=== PATIENT | male | born 1990 | race Caucasian/White ===

== ENCOUNTER 2018-10-28 20:49 | Inpatient (IN) | payer OTHER ==
[~2018-10-28] VITALS: Ht 177.8 cm; Wt 113.0 kg
[2018-10-28 20:56] VITALS: Ht 177.8 cm; Wt 113.0 kg
--- NOTE | 2018-10-28 21:00 | NUR ---
PT BIBA FOR COMPLAINT O
--- NOTE | 2018-10-28 21:00 | NUR ---
DR. LEE AT BEDSIDE FOR MSE.
--- NOTE | 2018-10-28 21:02 | NUR ---
PT BIBA FOR COMPLAINT OF BEING FOUND UNRESPONSIVE BY FAMILY AND IN BATHUB AT HOME. PER TELETYPESETTER OPERATOR, PT HAS A HX OF SEIZURES AND HTN, WAS FOUND WITH BLOODY NOSE TO RIGHT NARE AND LAST SEIZURE WAS 5 MONTHS AGO. BS 137 PER TELETYPESETTER OPERATOR AND PT GCS 14 EN ROUTE BUT "RASHARD CONFUSED". IV STARTED TO LFA 18G. PT AOX4 ABLE TO RESPOND TO COMMANDS AND MAKE NEEDS KNOWN, SPEECH CLEAR, REPORTS FUENTES/DIZZINESS. LUNG SOUNDS CLEAR BILATERALLY. SEIZURE PRECAUTIONS IN PLACE.
[2018-10-28 21:31] LABS: UA SPECIFIC GRAVITY 1.025 (1.005-1.035); microscopic required? YES; urine erythrocyte 2+ (NEGATIVE)
[2018-10-28 21:39] LABS: AMPHETAMINE QUAL UR NONE DETECTED (See below)
--- NOTE | 2018-10-28 21:55 | NUR ---
DR. LEE AT BEDSIDE TO DISUCSS WITH PT POC.
--- NOTE | 2018-10-28 22:01 | NUR ---
PER DR. LEE, NO S/S OF ANY TRAUMA TO PT'S HEAD REGION, "NO NEED FOR CT OF HEAD AT THIS TIME". PER DR. LEE, OK FOR FAMILY TO BRING IN HOME MEDICATION OF PATIENT DUE TO OUR PHARMACY NOT HAVING THE PRESCRIBED MEDICATIONS AND OK TO TAKE THE HOME SCHEDULED DOSE.
[2018-10-28 22:07] LABS: BASOPHIL % 0.3 % (0-2); PLATELET COUNT 296 x10^3mcL (130-400); RED CELL DISTRIBUTION WIDTH 12.7 % (11.5-14.5)
[2018-10-28 22:14] LABS: CALCIUM 8.6 mg/dL (8.5-10.1); CARBON DIOXIDE 16.5 mmol/L (21-32); CHLORIDE SERUM 100 mmol/L (98-107); CREATININE SERUM 1.3 mg/dL (0.7-1.3); GFR1 > 60 mL/min; GLUCOSE SERUM 145 mg/dL (74-106); POTASSIUM SERUM 3.6 mmol/L (3.5-5.1); SODIUM SERUM 135 mmol/L (136-145)
[2018-10-28 22:19] LABS: ALBUMIN 4.1 g/dL (3.4-5.0); ALKALINE PHOSPHATASE 102 U/L (46-116); ALT/SGPT 56 U/L (16-63); AST/SGOT 23 U/L (15-37); BILIRUBIN TOTAL 0.27 mg/dL (0.20-1.00); TOTAL PROTEIN, SERUM 8.2 g/dL (6.4-8.2)
--- NOTE | 2018-10-28 22:45 | NUR ---
DR. LEE AT BEDSIDE TO DISCUSS WITH PT POC. PER DR. ROSA SHAH FOR PT TO TAKE HOME MEDS.
--- NOTE | 2018-10-28 23:04 | NUR ---
DR. LEE AT BEDSIDE TO DISCUSS POC
--- NOTE | 2018-10-28 23:47 | NUR ---
PT FOUND BY POULTRY TRIMMER TO BE HAVING A SEIZURE. UPON ENTERING ROOM PT UNABLE TO RESPOND TO COMMANDS, RESPONDS TO PAINFUL STIMULI. HR SPIKED TO 120'S. SZ PRECAUTIONS IN PLACE, OXYGEN NC TTIRATED TO 4L SATURATING @ 94%. DR. LEE AT BEDSIDE. PER DR. LEE IVP ATIVAN 2MG. GIVEN AT THIS TIME.
--- NOTE | 2018-10-29 00:17 | NUR ---
PT BACK FROM CT
[2018-10-29] MEDS ORDERED: BRIVIACT100 MG PO (00:38)
[2018-10-29] MEDS ORDERED: APTIOM800 MG PO (00:39)
[2018-10-29] MEDS ORDERED: LAMICTAL200 MG PO (00:39)
[2018-10-29] MEDS ORDERED: CLONAZEPAM2 MG PO (00:42)
--- NOTE | 2018-10-29 01:16 | NUR ---
GAVE REPORT TO RAJESH CORTES. UPDATES GIVEN. QUESTIONS ANSWERED.
[2018-10-29 01:20] LABS: CHOLESTEROL/HDL RATIO 3.9; MAGNESIUM 2.9 mg/dL (1.8-2.4); PHOSPHOROUS 2.4 mg/dL (2.5-4.9)
[2018-10-29 01:27] LABS: T3 TOTAL 1.12 ng/mL
[2018-10-29 01:30] LABS: FREE T4 0.83 ng/dL (0.76-1.46); FREE THYROXINE INDEX 1.9 ug/dL (1.4-4.5); T4(THYROXINE) 5.7 ug/dL (4.7-13.3)
[2018-10-29 02:10] VITALS: BP 126/71
--- NOTE | 2018-10-29 02:20 | NUR ---
RECEIVED PT FROM ED VIA SOREN ACCOMPANIED BY RN. PT LETHARGIC. PER ED RN, PT AA&O X4 PRIOR TO GIVING SEIZURE MEDS. TRIES TO OPEN EYES WITH VERBAL STIMULI. NO SOB ON O2 4L VIA NC. NO FACIAL GRIMACING. IV TO LFA, INTACT. SAFETY MEASURES IN PLACE. BED IN LOWEST POSITION. SIDE RAILS UP WITH PADS. INSTRUCTED PT TO USE THE CALL LIGHT FOR ASSISTANCE. CALL LIGHT WITHN REACH. BED ALARM ON. MOTHER AT BEDSIDE.
[2018-10-29 05:56] VITALS: BP 142/77
[2018-10-29 06:55] LABS: BASOPHIL % 0.7 % (0-2); PLATELET COUNT 251 x10^3mcL (130-400); RED CELL DISTRIBUTION WIDTH 12.8 % (11.5-14.5)
--- NOTE | 2018-10-29 07:23 | NUR ---
PT SEEN SITTING ON BSC. PT AA/O X4 AT THIS TIME. PT RESPONSE SLOWLY. PT ON SZ PRECAUTION. PT BREATHING ON RA, EVEN, UNLABORED. GENERALIZED WEAKNESS NOTED. IV SITE PATENT, INTACT. SALINE LOCK AT THIS TIME.
--- NOTE | 2018-10-29 07:23 | NUR ---
PT SLEPT THROUGHOUT SHIFT. PT MORE AROUSABLE THIS MORNING. ORIENTED X4. PT VOIDED USING THE URINAL AND HAD BM USING THE BEDSIDE COMMODE. PT STATES STILL FEELING WEAK AND FELT DIZZY WHEN HE STOOD UP. INSTRUCTED THE PT TO USE THE CALL LIGHT FOR ASSISTANCE. CALL LIGHT WITHIN REACH. SAFETY MEASURES MAINTAINED. ALL NEEDS ATTENDED TO. ENDORSED CONTINUITY OF CARE TO DAY SHIFT RN.
[2018-10-29 07:44] LABS: CALCIUM 8.4 mg/dL (8.5-10.1); CARBON DIOXIDE 22.4 mmol/L (21-32); CREATININE SERUM 1.6 mg/dL (0.7-1.3); MAGNESIUM 2.9 mg/dL (1.8-2.4); PHOSPHOROUS 3.5 mg/dL (2.5-4.9); POTASSIUM SERUM 3.7 mmol/L (3.5-5.1)
[2018-10-29 08:00] VITALS: BP 134/87
--- NOTE | 2018-10-29 09:00 | NUR ---
PT'S MOM AT BED SIDE. DR. BARCENAS LEADING MEDICAL TEAM MORNING ROUND. PT IS STILL VERY DROWSY BUT AROUSABLE WITH VERBAL RESPONSE. PT IS WAITING FOR NEUROLOGIST. WILL CONTINUE TO MONITOR.
--- NOTE | 2018-10-29 10:19 | NUR ---
PT'S MOM BROUGHT PT'S HOME MEDS. APTION AND LIDNSEY SENT TO PHARMACY TO VERIFY.
--- NOTE | 2018-10-29 10:30 | NUR ---
INVENTORY COUNT WITH PHARMACIST ON PT'S HOME MED BRIAVIACT, TOTAL 98 TABLETS, INSTORED MED IN THE MED LOCKER OF MID MED ROOM, BLUE SHEET IN CHART.
--- NOTE | 2018-10-29 11:34 | NUR ---
TELE-NEURO CONSULTATION INITIATED, SPOKE WITH Bandar FROM [employer]. REQUETED INFORMATION PROVIDED. SOC DEVICE SET UP IN THE ROOM. ATTENDING NURSE VINICIO BLAIR.
--- NOTE | 2018-10-29 13:48 | NUR ---
PT'S MOM AT BED SIDE. TELE- NEUROU CONSULT DONE BY DR. MAGAÑA. MADE DR. GAVIRIA AWARE ABOUT DR. MAGAÑA'S CALL BACK PHONE NUMBER. PT IS MORE AWAKE AND ABLE TO WALK TO BATHROOM WITH MIN ASSIST.
[2018-10-29 14:13] VITALS: BP 132/80
[2018-10-29 16:59] VITALS: BP 132/80
--- NOTE | 2018-10-29 17:01 | NUR ---
PT IS MORE AWAKE. TALKED TO PT. PT AGREED WITH DISCHARGE PLAN. WILL GET PT READY FOR DISCHARGE.
--- NOTE | 2018-10-29 17:14 | NUR ---
RECEIVED PT'S TELE NEURO CONSULT REPORT. MADE DR. GAVIRIA AWARE. CONTINUE PT'S DISCHARGE PLAN.
--- NOTE | 2018-10-29 17:57 | NUR ---
PT IS DISCHARGED. PT'S HOME MED BRIVIACT AND APTION RETURNED TO PT. PT STATED STILL FEELING WEAKNESS AND SORE FROM LAST SEIZURE, BUT NO DISTRESSED AND DIZZINESS REPORTED. WALKED PT OUT OF UNIT AND STOPPED BY PHARMACY, RECOUNTED BRIVIACT PILLS IN THE OPENT BOTTLE WIITH PHARMACIST IN FRONT OF PT, 37 TABS REMAINED AND ONE NEW BOTTLE RETURN TO PT IN FRONT OF PT'S MOM. WALKED PT OUT OF LOBBY. PT'S MOM TAKE PT HOME. IV, ID BAND AND TELE MONITOR REMOVED.
[2018-10-29 18:25] VITALS: BP 120/70
== END 2018-10-29 17:45 | disposition home or self-care (01) | DRG 100 ==
LOC: ED 20:49 → DU 10-29 00:05
PROVIDERS: Emergency Medicine; ADMIT Internal Medicine
DX: G40.909 Epilepsy, unspecified, not intractable, without status epilepticus (principal); N17.0 Acute kidney failure with tubular necrosis; I10 Essential (primary) hypertension; E83.41 Hypermagnesemia; G90.8 Other disorders of autonomic nervous system; E83.39 Other disorders of phosphorus metabolism; E78.5 Hyperlipidemia, unspecified; R80.9 Proteinuria, unspecified; E66.9 Obesity, unspecified; Z79.899 Other long term (current) drug therapy; Z68.35 Body mass index [BMI] 35.0-35.9, adult
CPT/HCPCS: 83880; 84439; J2060; J7030; Q0092